=== PATIENT | female | born 1990 | race Caucasian/White ===

== ENCOUNTER 2017-03-31 17:48 | Emergency (ER) | payer MEDICAID ==
[~2017-03-31] VITALS: Ht 165.1 cm; Wt 61.2 kg
[~2017-03-31 17:48] MED LIST: AUGMENTIN 875-1 EAC1 ORAL; AZITHROMYCIN250 MG ORAL; EXCEDRIN EXTRA1 EAC1 PO; NKM
[2017-03-31 17:54] VITALS: BP 128/72
--- NOTE | 2017-03-31 18:16 | Emergency Room Report ---
History of Present Illness General Chief Complaint: Wound Recheck/Suture Removal Source: Patient Present Illness HPI 26YOF here for suture removal to laceration sustained 7 days prior in [place]. had 4 sutures placed. Took PPx Abx. Denies fever/chills, pain, pus drainage. Feels well otherwise. Allergies: Coded Allergies: No Known Allergies (Unverified , 09/24/15) Patient History Past Medical History: none Past Surgical History: none Pertinent Family History: none Social History: Denies: alcohol use, drug use, smoking Last Menstrual Period: 03/17/2017 Now: No Immunizations: UTD Reviewed Nursing Documentation: PMH: Agreed, PSxH: Agreed Nursing Documentation-PMH Past Medical History: No Stated History Review of Systems All Other Systems: negative except mentioned in HPI Physical Exam Vital Signs Date Time Temp Pulse Resp B/P Pulse Ox O2 Delivery O2 Flow Rate FiO2 03/31/17 17:54 98.2 67 16 128/72 99 Room Air Sp02 EP Interpretation: reviewed, normal General Appearance: normal inspection, well appearing, no apparent distress, alert Head: normocephalic, atraumatic Eyes: bilateral eye EOMI, bilateral eye PERRL ENT: normal ENT inspection, hearing grossly normal, normal voice Neck: normal inspection, full range of motion, supple, no bony tend Respiratory: normal inspection, lungs clear, normal breath sounds, no respiratory distress, no retraction, no wheezing Cardiovascular #1: regular rate, rhythm, no edema Gastrointestinal: normal inspection, normal bowel sounds, non tender, soft, no guarding, no hernia Genitourinary: no CVA tenderness Musculoskeletal: normal inspection, back normal, normal range of motion, Timur' s Sign negative Neurologic: normal inspection, alert, oriented x3, responsive, 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 Non-tender. No sign of infection. Healing well. 4 black sutures observed. Medical Decision Making Diagnostic Impression: Primary Impression: Encounter for dressing change or suture removal ER Course 4 sutures removed Wound holding together well, healing No sign of infection DC home Last Vital Signs Date Time Temp Pulse Resp B/P Pulse Ox O2 Delivery O2 Flow Rate FiO2 03/31/17 17:54 98.2 67 16 128/72 99 Room Air Status: improved Disposition: HOME, SELF-CARE IRENA HARVEY M.D. Mar 31, 2017 18:15
[2017-03-31 18:47] VITALS: BP 119/71
== END 2017-03-31 18:45 | disposition home or self-care (01) ==
LOC: EMR 18:15
DX: Z48.02 Encounter for removal of sutures (principal)
CPT/HCPCS: 99281

== ENCOUNTER 2017-06-14 18:44 | Emergency (ER) | payer MEDICAID ==
[~2017-06-14] VITALS: Ht 165.1 cm; Wt 63.5 kg
[2017-06-14 19:15] VITALS: BP 128/80
--- NOTE | 2017-06-14 19:17 | Emergency Room Report ---
History of Present Illness General Chief Complaint: Female Urogenital Problems Source: Patient Present Illness HPI 26YOF with 2 days dysuria, polyuria Has had symptoms since [employer] party a few days ago - kept swimsuit on for extended period of time after Thought it was yeast infection - took 3 days of fluconazole - no improvement Now also with fever/chills No flank, abd pain, nausea/vomiting Allergies: Coded Allergies: No Known Allergies (Unverified , 09/24/15) Patient History Past Medical History: none Past Surgical History: none Pertinent Family History: none Social History: Denies: alcohol use, drug use, smoking Now: Yes Reviewed Nursing Documentation: PMH: Agreed, PSxH: Agreed Nursing Documentation-PMH Past Medical History: No Stated History Review of Systems All Other Systems: negative except mentioned in HPI Physical Exam Vital Signs Date Time Temp Pulse Resp B/P Pulse Ox O2 Delivery O2 Flow Rate FiO2 06/14/17 18:53 98.1 63 20 128/80 100 Room Air Sp02 EP Interpretation: reviewed, normal General Appearance: normal inspection, well appearing, no apparent distress, alert, GCS 15, non-toxic Head: normocephalic, atraumatic Eyes: bilateral eye EOMI, bilateral eye PERRL ENT: normal ENT inspection, hearing grossly normal, normal voice Neck: normal inspection, full range of motion, supple, no bony tend Respiratory: normal inspection, lungs clear, normal breath sounds, no respiratory distress, no retraction, no wheezing Cardiovascular #1: regular rate, rhythm, no edema Gastrointestinal: normal inspection, normal bowel sounds, non tender, soft, no guarding, no hernia Genitourinary: no CVA tenderness Musculoskeletal: normal inspection, back normal, normal range of motion, Timur' s Sign negative Neurologic: normal inspection, alert, oriented x3, responsive, 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 06/14/17 IRENA HARVEY M.D. Jun 14, 2017 19:17
[2017-06-14] MEDS ORDERED: NITROFURANTOIN100 M2 ORAL (19:27)
[2017-06-14 19:40] VITALS: BP 122/72
[2017-06-14 19:44] LABS: APPEARANCE,URINE SLIGHTLY CLOUDY; KETONES,URINE NEGATIVE (NEGATIVE); LEUKOCYTE ESTERASE ,URINE 3+ (NEGATIVE); NITRITE,URINE NEGATIVE (NEGATIVE); PH,URINE 7 (4.5-8.0); PROTEIN,URINE NEGATIVE (NEGATIVE); UROBILINOGEN,URINE NORMAL MG/DL (0.0-1.0)
[2017-06-14 19:50] LABS: BACTERIA,URINE MODERATE /HPF; SQUAMOUS EPITHELIAL CELL,UR MANY /LPF (NONE/OCC); WBC,URINE TNTC /HPF (0 - 2)
== END 2017-06-14 19:50 | disposition home or self-care (01) ==
LOC: EMR 19:50
DX: R30.0 Dysuria (principal)
CPT/HCPCS: 81003; 81025; 87086; 99284

== ENCOUNTER 2017-06-19 08:37 | Emergency (ER) | payer MEDICAID ==
[~2017-06-19] VITALS: Ht 165.1 cm; Wt 63.5 kg
[~2017-06-19 08:37] MED LIST changes: +NITROFURANTOIN100 M2 ORAL
[2017-06-19] MEDS ORDERED: KEFLEX500 MG ORAL (08:54)
[2017-06-19] MEDS ORDERED: IBUPROFEN600 MG ORAL (08:54)
[2017-06-19 09:03] VITALS: BP 114/65
--- NOTE | 2017-06-19 09:21 | Emergency Room Report ---
History of Present Illness General Chief Complaint: Skin Rash/Abscess Source: Patient Present Illness HPI Patient presented for toe pain and swelling. Patient gradual onset of symptoms. Patient reported having some slight amount of discharge from the left great toe. Patient denied any fever. She reports taking antibiotics for urinary tract infection. Patient had previously been taking Macrobid. She denies any fever. Allergies: Coded Allergies: No Known Allergies (Unverified , 09/24/15) Patient History Past Medical History: see triage record Last Menstrual Period: 05/07/17 Now: No Reviewed Nursing Documentation: PMH: Agreed, PSxH: Agreed Nursing Documentation-PMH Past Medical History: No Stated History Review of Systems All Other Systems: negative except mentioned in HPI Physical Exam Vital Signs Date Time Temp Pulse Resp B/P Pulse Ox O2 Delivery O2 Flow Rate FiO2 06/19/17 08:40 98.2 78 14 117/81 98 Room Air General Appearance: well appearing, no apparent distress, alert, GCS 15 Head: normocephalic, atraumatic ENT: hearing grossly normal, normal voice Neck: full range of motion, supple Respiratory: no respiratory distress, speaking full sentences Cardiovascular #1: normal peripheral pulses, regular rate, rhythm, no edema Gastrointestinal: normal inspection, non tender Musculoskeletal: normal inspection, no calf tenderness Neurologic: normal inspection, alert, oriented x3, responsive, normal gait Psychiatric: mood/affect normal Skin: other - swelling to left great toe Medical Decision Making Diagnostic Impression: Primary Impression: Ingrowing toenail of left foot ER Course Patient presented for toe swelling. Differential diagnosis included was not limited to ingrown toenail, cellulitis, osteomyelitis, foreign body among others. Patient's benign exam and does not appear to require any further imaging or laboratory testing at this time. The patient noted have some evidence of ingrown toenail which appears to be minimally infected. Patient put on Keflex.Patient does not appear does not appear to require removal at this time. The patient is advised to follow up with primary care doctor in 1- 2 days. Patient is advised to return if any worsening condition or if any changes in status that are concerning. Last Vital Signs Date Time Temp Pulse Resp B/P Pulse Ox O2 Delivery O2 Flow Rate FiO2 06/19/17 08:40 98.2 78 14 117/81 98 Room Air Status: unchanged Disposition: HOME, SELF-CARE Condition: Stable Scripts Ibuprofen* (MOTRIN*) 600 Mg Tablet 600 MG ORAL Q8H Y for For Pain, #30 TAB 0 Refills Prov: Shawn Stephen 06/19/17 Cephalexin* (KEFLEX*) 500 Mg Capsule 500 MG ORAL Q6H, #28 CAP 0 Refills Prov: Shawn Stephen 06/19/17 Referrals: [facility],REFERRING (PCP) Patient Instructions: Shawn Stubbs Jun 19, 2017 09:21
== END 2017-06-19 09:03 | disposition home or self-care (01) ==
LOC: EMR 09:02
DX: L60.0 Ingrowing nail (principal)
CPT/HCPCS: 99284

== ENCOUNTER 2017-11-08 16:44 | Emergency (ER) | payer MEDICAID ==
[~2017-11-08] VITALS: Ht 165.1 cm; Wt 72.6 kg
[~2017-11-08 16:44] MED LIST changes: +IBUPROFEN600 MG ORAL; +KEFLEX500 MG ORAL
[2017-11-08] MEDS ORDERED: ORTHO TRI-CYCL1 EAC1 PO (17:09)
[2017-11-08 17:49] LABS: APPEARANCE,URINE CLEAR; BILIRUBIN, URINE NEGATIVE (NEGATIVE); COLOR,URINE PALE YELLOW; GLUCOSE, URINE (UA) NEGATIVE (NEGATIVE); KETONES,URINE NEGATIVE (NEGATIVE); LEUKOCYTE ESTERASE ,URINE 1+ (NEGATIVE); NITRITE,URINE NEGATIVE (NEGATIVE); PH,URINE 7 (4.5-8.0); PROTEIN,URINE NEGATIVE (NEGATIVE); UROBILINOGEN,URINE NORMAL MG/DL (0.0-1.0)
[2017-11-08] MEDS ORDERED: HYDROcodone/Acetamin 7.5/325 tab ORAL ONE (18:00)
[2017-11-08 19:30] VITALS: BP 126/77
--- NOTE | 2017-11-08 20:05 | Emergency Room Report ---
History of Present Illness General Chief Complaint: Abdominal Pain Source: Patient Present Illness HPI 26-year-old female presents to the emergency department complaining of 8/10 in severity left-sided adnexal pain and tenderness since yesterday. Patient also reports subjective fever she denies chills she denies measuring her temperature at home. Patient has been taking Tylenol which provides minimal relief. Patient states she just started control 2 weeks ago. She denies vaginal discharge, dyspareunia, dysuria, hematuria, vaginal bleeding , swollen tender lymph nodes, she is STD or . Patient reports history of ovarian cyst in the past, however she reports pain today is much stronger in severity than what she is used to. She denies nausea, vomiting, constipation or diarrhea. Allergies: Coded Allergies: No Known Allergies (Unverified , 09/24/15) Patient History Past Medical History: see triage record Past Surgical History: none Pertinent Family History: none Last Menstrual Period: control measures, 2 weeks ago Reviewed Nursing Documentation: PMH: Agreed, PSxH: Agreed Nursing Documentation-PMH Past Medical History: No History, Except For Review of Systems All Other Systems: negative except mentioned in HPI Physical Exam Vital Signs Date Time Temp Pulse Resp B/P (MAP) Pulse Ox O2 Delivery O2 Flow Rate FiO2 11/08/17 17:04 98.8 87 16 126/77 99 Room Air Sp02 EP Interpretation: reviewed, normal General Appearance: no apparent distress, alert, GCS 15, non-toxic Head: normocephalic, atraumatic Eyes: bilateral eye normal inspection, bilateral eye PERRL ENT: hearing grossly normal, normal voice Neck: full range of motion Respiratory: lungs clear, normal breath sounds, speaking full sentences Cardiovascular #1: regular rate, rhythm Gastrointestinal: normal bowel sounds, non tender, soft Rectal: deferred Genitourinary: normal inspection, other - moderate left adnexal tenderness. Musculoskeletal: back normal, gait/station normal, normal range of motion, non- tender Neurologic: alert, oriented x3, responsive, motor strength/tone normal, sensory intact, speech normal, grossly normal Psychiatric: judgement/insight normal Skin: normal color, no rash, warm/dry, well hydrated Lymphatic: no adenopathy Medical Decision Making PA Attestation Dr. dietrich is my supervising Physician whom patient management has been discussed with. Diagnostic Impression: Primary Impression: Adnexal pain Additional Impressions: Ovarian cyst Qualified Codes: N83.201 - Unspecified ovarian cyst, right side; N83.202 - Unspecified ovarian cyst, left side PCOS (polycystic ovarian syndrome) ER Course 26-year-old female presents to the emergency department complaining of 8/10 in severity left-sided adnexal pain and tenderness since yesterday. Patient also reports subjective fever she denies chills she denies measuring her temperature at home. Patient has been taking Tylenol which provides minimal relief. Patient states she just started control 2 weeks ago. She denies vaginal discharge, dyspareunia, dysuria, hematuria, vaginal bleeding , swollen tender lymph nodes, she is STD or . Patient reports history of ovarian cyst in the past, however she reports pain today is much stronger in severity than what she is used to. She denies nausea, vomiting, constipation or diarrhea. Ddx considered but are not limited to Diverticulitis, acute appy, ovarian torsion, ectopic , PID tubo-ovarian abscess, ovarian cyst. Vital signs: are WNL, pt. is afebrile, Patient is nontoxic and her parents she is in no acute distress. H&PE are most consistent with possible ovarian cyst, however due to presentation will r/o torsion, ectopic, and stone. ORDERS: -UA: Most indicative of contamination: presence of equal amounts of bacteria and squamous cells, no elevation in inflammatory markers, nitrite negative. -URINE HCG: Negative -Pelvic US Complete: Pulmonary ultrasound or further shows multiple peripheral cysts no free fluid good flow to the ovaries bilaterally no abscesses. ED INTERVENTIONS: -Sparks PO Discussed with this patient the results of her imaging studies and that she possibly has polycystic ovarian syndrome and what she'll have multiple ovarian cysts she specifically managed with oral control or spironolactone I discussed that she needs to followup with [facility] for medication management and to confirm diagnosis. DISCHARGE: At this time pt. is stable for d/c to home. Will provide printed patient care instructions, and any necessary prescriptions. Care plan and follow up instructions have been discussed with the patient prior to discharge. Labs Test 11/08/17 17:20 Urine Color Pale yellow Urine Appearance Clear Urine pH 7 (4.5-8.0) Urine Specific [place] 1.005 (1.005-1.035) Urine Protein Negative (NEGATIVE) Urine Glucose (UA) Negative (NEGATIVE) Urine Ketones Negative (NEGATIVE) Urine Occult Blood Negative (NEGATIVE) Urine Nitrite Negative (NEGATIVE) Urine Bilirubin Negative (NEGATIVE) Urine Urobilinogen Normal MG/DL (0.0-1.0) Urine Leukocyte Esterase 1+ (NEGATIVE) Urine RBC 0-2 /HPF (0 - 2) Urine WBC 0-2 /HPF (0 - 2) Urine Squamous Epithelial Cells Few /LPF (NONE/OCC) Urine Bacteria Few /HPF (NONE) Urine HCG, Qualitative Negative Last Vital Signs Date Time Temp Pulse Resp B/P (MAP) Pulse Ox O2 Delivery O2 Flow Rate FiO2 11/08/17 17:04 98.8 87 16 126/77 99 Room Air Disposition: HOME, SELF-CARE Condition: Stable Scripts Ibuprofen* (MOTRIN*) 600 Mg Tablet 600 MG ORAL THREE TIMES A DAY, #30 TAB 0 Refills Prov: Edith Lora 11/08/17 Hydrocodone Bit/Acetaminophen 5-325* (NORCO 5-325 TABLET*) 1 Each Tablet 1 TAB ORAL Q6HR Y for For Pain, #9 TAB Prov: Edith Lora 11/08/17 Referrals: [facility],REFERRING (PCP) Patient Instructions: Ovarian Cyst, Polycystic Ovarian Syndrome Additional Instructions: Take medications as directed. Follow up with a OBGYN within 3 days, even if your symptoms have resolved. pelvic US preliminary read shows: multiple peripheral cysts on the ovaries bilaterally. Return sooner to ED if new symptoms occur, or current symptoms become worse. Edith Lora Nov 08, 2017 20:05
[2017-11-08] MEDS ORDERED: PRENATAL + DHA1 EAC1 PO (20:09)
[2017-11-08] MEDS ORDERED: TYLENOL EXTRA500 MG ORAL (20:09)
[2017-11-08] MEDS ORDERED: ROBITUSSIN COU237 M1 PO (20:09)
[2017-11-08] MEDS ORDERED: NORCO 5-325 TA1 EAC1 ORAL (20:43)
[2017-11-08] MEDS ORDERED: IBUPROFEN600 MG ORAL (20:43)
[2017-11-08] MEDS ORDERED: Norco 5mg/325mg tab ORAL ONE (20:45)
[2017-11-08 21:00] VITALS: BP 126/80
[2017-11-08 21:03] VITALS: BP 126/77
--- NOTE | 2017-11-09 10:13 | Diagnostic Imaging Report ---
Indication: Pain. Last menstrual period 10/22/2017 Technique: Transabdominal and endovaginal pelvic ultrasound was performed. Comparison: None Findings: Uterus measures 8.4 x 4.8 x 5.4 cm. Endometrium measures 10 mm in thickness. No focal uterine abnormality is identified. A 2.3 mm cystic structures noted within the cervix, likely nabothian cyst. The right ovary measures 3.8 x 2.7 x 1.8 cm/9.4 mL. The left ovary measures 4.1 x 1.9 x 2.8 cm/11.6 mL rate multiple peripheral follicles are noted in the bilateral ovaries, right greater than left. There is a 2.8 x 1.8 cm more hyperechoic left ovarian cyst/lesion which may represent a more complex is. Follow-up exam recommended to assess stability. There is no evidence to suggest ovarian torsion at this time, color flow to the bilateral ovaries identified. No free pelvic fluid. Impression: Evidence of suggest ovarian torsion at this time. Multiple follicles in the periphery of each ovary may suggest polycystic ovarian syndrome in the appropriate clinical setting. Somewhat more hyperechoic cyst/lesion in the left ovary measuring up to 2.8 cm may represent a complex cyst versus neoplasm (benign or malignant). Short-term interval follow-up exam recommended to assess stability/resolution. This corresponds with the [facility] preliminary report with some discrepancy regarding left ovarian findings. Findings and imaging follow-up recommendations discussed with Dr. Stephen on 11/09/2017, 10:00 AM.
== END 2017-11-08 21:03 | disposition home or self-care (01) ==
LOC: EMR 17:20
DX: R10.2 Pelvic and perineal pain (principal); N83.202 Unspecified ovarian cyst, left side
CPT/HCPCS: 76856; 81003; 81025; 99284

== ENCOUNTER 2018-01-22 18:32 | Emergency (ER) | payer MEDICAID ==
[~2018-01-22] VITALS: Ht 165.1 cm; Wt 72.6 kg
[~2018-01-22 18:32] MED LIST changes: +NORCO 5-325 TA1 EAC1 ORAL; +ORTHO TRI-CYCL1 EAC1 PO; +PRENATAL + DHA1 EAC1 PO; +ROBITUSSIN COU237 M1 PO; +TYLENOL EXTRA500 MG ORAL
--- NOTE | 2018-01-22 19:00 | Emergency Room Report ---
History of Present Illness General Chief Complaint: Female Urogenital Problems Source: Patient Present Illness HPI 27-year-old female patient presents to ER complaining of frequency x4 days. Denies dysuria, hematuria, discharge, foul smelling odor. Denies vaginal sores, rash, abdominal pain, flank pain. 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 Denies hx of kidney stones, IVDA, cancer. Reports sexually monogamous, uses condoms during sex. Denies hx of STI. Reports LMP 2 weeks ago, normal for her. Reports on control. Denies . Reports hx of UTI, states this feels similar. Denies fever, chest pain, SOB. Allergies: Coded Allergies: No Known Allergies (Unverified , 09/24/15) Patient History Past Medical History: see triage record Last Menstrual Period: 2 weeks Now: No Reviewed Nursing Documentation: PMH: Agreed; PSxH: Agreed Nursing Documentation-PMH Past Medical History: No History, Except For Review of Systems All Other Systems: negative except mentioned in HPI Physical Exam Vital Signs Date Time Temp Pulse Resp B/P (MAP) Pulse Ox O2 Delivery O2 Flow Rate FiO2 01/22/18 18:50 98.0 57 18 121/70 98 Room Air 98.1 Sp02 EP Interpretation: reviewed, normal General Appearance: well appearing, no apparent distress, alert, GCS 15, non- toxic Head: normocephalic, atraumatic Eyes: bilateral eye normal inspection, bilateral eye PERRL ENT: hearing grossly normal, normal pharynx, no angioedema, normal voice, uvula midline, moist mucus membranes Neck: full range of motion Respiratory: lungs clear, normal breath sounds, no rhonchi, no respiratory distress, no accessory muscle use, no wheezing, speaking full sentences Cardiovascular #1: regular rate, rhythm, no edema Gastrointestinal: non tender, soft, no mass, non-distended, no guarding, no rebound Genitourinary: no CVA tenderness Musculoskeletal: back normal, digits/nails normal, gait/station normal, normal range of motion, non-tender, no calf tenderness Neurologic: alert, oriented x3, responsive, motor strength/tone normal, sensory intact Psychiatric: mood/affect normal Skin: no rash Lymphatic: no adenopathy Medical Decision Making PA Attestation Dr. Stephen is my supervising Physician whom patient management has been discussed with. Diagnostic Impression: Primary Impression: Urinary tract infection ER Course Pt presents to ED c/o frequency. DDX considered but are not limited to cystitis, pyelonephritis, vaginitis, . VITAL SIGNS are WNL, patient is afebrile. ORDERS: UA with reflux Urine ER COURSE UA results positive for leukocyte esterase, WBC, equivocal for UTI, will treat with abx. Urine negative, results discussed with patient. Discussed results with patient. Instructed patient to followup with primary care provider and discuss referral to urology as needed. Followup with [facility] clinic if concern for UTI. DISCHARGE: Patient is resting comfortably in chair, nontoxic appearing, in no acute distress. Patient states they feel better and is ready to go home. -Rx provided for Keflex -Rx provided for Tylenol Will provide with patient care instructions and any necessary prescriptions. Patient understands and agrees to treatment plan. Patient encouraged to drink plenty of fluids. Patient to take medication as instructed. Care plan and follow-up instructions provided. Patient questions asked and answered. Reports understanding and agreement to treatment plan. Patient instructed to follow-up with primary care provider in 3 - 5 days. ER precautions given. Patient instructed to return to ER immediately for any new or worsening of symptoms. Including but not limited to fever, worsening pain , intractable vomiting. Labs Test 01/22/18 18:50 Urine Color Pale yellow Urine Appearance Clear Urine pH 8 (4.5-8.0) Urine Specific [place] 1.015 (1.005-1.035) Urine Protein Negative (NEGATIVE) Urine Glucose (UA) Negative (NEGATIVE) Urine Ketones Negative (NEGATIVE) Urine Occult Blood Negative (NEGATIVE) Urine Nitrite Negative (NEGATIVE) Urine Bilirubin Negative (NEGATIVE) Urine Urobilinogen Normal MG/DL (0.0-1.0) Urine Leukocyte Esterase 2+ (NEGATIVE) Urine RBC 0-2 /HPF (0 - 2) Urine WBC 2-4 /HPF (0 - 2) Urine Squamous Epithelial Cells Moderate /LPF (NONE/OCC) Urine Bacteria Few /HPF (NONE) Urine HCG, Qualitative Negative (NEGATIVE) Last Vital Signs Date Time Temp Pulse Resp B/P (MAP) Pulse Ox O2 Delivery O2 Flow Rate FiO2 01/22/18 18:50 98.0 57 18 121/70 98 Room Air 98.1 Disposition: HOME, SELF-CARE Condition: Stable Scripts Acetaminophen* (TYLENOL EXTRA STRENGTH*) 500 Mg Tablet 500 MG ORAL Q8H PRN for Prn Headache/Temp > 101, #30 TAB 0 Refills Prov: Chris Ghotra 01/22/18 Cephalexin* (KEFLEX*) 500 Mg Capsule 500 MG ORAL EVERY 12 HOURS for 7 Days, #14 CAP 0 Refills Prov: Chris Ghotra 01/22/18 Patient Instructions: Back Pain, Adult, [id number], Urinary Tract Infection Additional Instructions: Followup with primary care provider in 3 -5 days. Discuss referral to urologist. Take medications as directed. Patient questions asked and answered. ER precautions given, patient instructed to return to ER immediately for any new or worsening of symptoms. Chris Ghotra Jan 22, 2018 18:59
[2018-01-22 19:19] LABS: APPEARANCE,URINE CLEAR; BILIRUBIN, URINE NEGATIVE (NEGATIVE); COLOR,URINE PALE YELLOW; GLUCOSE, URINE (UA) NEGATIVE (NEGATIVE); KETONES,URINE NEGATIVE (NEGATIVE); LEUKOCYTE ESTERASE ,URINE 2+ (NEGATIVE); NITRITE,URINE NEGATIVE (NEGATIVE); PH,URINE 8 (4.5-8.0); PROTEIN,URINE NEGATIVE (NEGATIVE); UROBILINOGEN,URINE NORMAL MG/DL (0.0-1.0)
[2018-01-22] MEDS ORDERED: Acetaminophen 500mg (ES) tab ORAL ONE (19:45)
[2018-01-22] MEDS ORDERED: CEPHALEXIN500 MG ORAL (19:46)
[2018-01-22] MEDS ORDERED: TYLENOL EXTRA500 MG ORAL (19:46)
[2018-01-22 19:52] VITALS: BP 118/74
[2018-01-22 19:53] VITALS: BP 118/74
== END 2018-01-22 19:54 | disposition home or self-care (01) ==
LOC: EMR 19:50
DX: N39.0 Urinary tract infection, site not specified (principal)
CPT/HCPCS: 81003; 81025; 99284

== ENCOUNTER 2018-04-25 18:51 | Emergency (ER) | payer MEDICAID ==
[~2018-04-25] VITALS: Ht 165.1 cm; Wt 72.6 kg
[~2018-04-25 18:51] MED LIST changes: +CEPHALEXIN500 MG ORAL
[2018-04-25] MEDS ORDERED: MYORISAN30 MG PO (19:12)
--- NOTE | 2018-04-25 19:52 | Emergency Room Report ---
History of Present Illness General Chief Complaint: Sore Throat Source: Patient Present Illness HPI 27 YO Female presents to the ED c/o : 05/07 in severity sore throat, tonsillar swelling, and nasal congestion x 2 days With intermittent fevers and chills. Denies cough, ear pain, neck pain or stiffness. has been taking Motrin OTC for pain. Denies recent travel or ill contacts. Denies CP, Palpitations, LOC, AMS, dizziness, Changes in Vision, Sensation, paresthesias, or a sudden severe headache. Allergies: Coded Allergies: No Known Allergies (Unverified , 09/24/15) Patient History Past Medical History: see triage record Past Surgical History: none Pertinent Family History: none Last Menstrual Period: 04/11/18 Now: No Reviewed Nursing Documentation: PMH: Agreed; PSxH: Agreed Review of Systems All Other Systems: negative except mentioned in HPI Physical Exam Vital Signs Date Time Temp Pulse Resp B/P (MAP) Pulse Ox O2 Delivery O2 Flow Rate FiO2 04/25/18 19:09 99.5 96 17 131/84 97 Room Air 99.5 Sp02 EP Interpretation: reviewed, normal General Appearance: no apparent distress, alert, GCS 15, non-toxic Head: normocephalic, atraumatic Eyes: bilateral eye normal inspection, bilateral eye PERRL ENT: hearing grossly normal, normal voice, TMs + canals normal, uvula midline, moist mucus membranes, tonsillar swelling, pharyngeal erythema, tonsillar exudate Neck: full range of motion, no meningismus, no bony tend Respiratory: lungs clear, normal breath sounds, no respiratory distress, no wheezing, speaking full sentences Cardiovascular #1: regular rate, rhythm Musculoskeletal: back normal, gait/station normal, normal range of motion, non- tender Neurologic: alert, oriented x3, responsive, motor strength/tone normal, sensory intact, normal gait, speech normal, grossly normal Psychiatric: judgement/insight normal Skin: normal color, no rash, warm/dry, well hydrated Lymphatic: no adenopathy Medical Decision Making PA Attestation Dr. Murrieta is my supervising Physician whom patient management has been discussed with. Diagnostic Impression: Primary Impression: Pharyngitis Qualified Codes: J02.0 - Streptococcal pharyngitis ER Course 27 YO Female presents to the ED c/o : 05/07 in severity sore throat, tonsillar swelling, and nasal congestion x 2 days With intermittent fevers and chills. Denies cough, ear pain, neck pain or stiffness. has been taking Motrin OTC for pain. Denies recent travel or ill contacts. Denies CP, Palpitations, LOC, AMS, dizziness, Changes in Vision, Sensation, paresthesias, or a sudden severe headache. Ddx considered but are not limited to: pharyngitis, strep, [employer], ludwigs angina, URI Vital signs: are WNL, pt. is afebrile H&PE are most consistent with: pharyngitis presumed strep. ORDERS: None required at this time as the diagnosis is clinical ED INTERVENTIONS: none required at this time. DISCHARGE: At this time pt. is stable for d/c to home. Will provide printed patient care instructions, and any necessary prescriptions. Care plan and follow up instructions have been discussed with the patient prior to discharge. Last Vital Signs Date Time Temp Pulse Resp B/P (MAP) Pulse Ox O2 Delivery O2 Flow Rate FiO2 04/25/18 19:09 99.5 96 17 131/84 97 Room Air 99.5 Disposition: HOME, SELF-CARE Condition: Stable Scripts Cetirizine Hcl/Pseudoephedrine (ZYRTEC-D TABLET) 1 Each Tab.er.12h 1 EACH ORAL Q12HR for 7 Days, #14 TAB Prov: Edith Lora 04/25/18 Azithromycin* (ZITHROMAX*) 250 Mg Tablet 250 MG ORAL DAILY for 5 Days, #6 TAB Prov: Edith Lora 04/25/18 Patient Instructions: Strep Throat Additional Instructions: Take medications as directed. Follow up with a Primary Care Provider in 3-5 days, even if your symptoms have resolved. --Please review list of primary care clinics, if you do not already have a primary care provider Return sooner to ED if new symptoms occur, or current symptoms become worse. - Please note that this Emergency Department Report was dictated using [employer] operator technology software, occasionally this can lead to erroneous entry secondary to interpretation by the dictation equipment. Edith Lora Apr 25, 2018 19:52
[2018-04-25] MEDS ORDERED: ZYRTEC-D TABLE1 EACH ORAL (19:53)
[2018-04-25] MEDS ORDERED: ZITHROMAX250 MG ORAL (19:53)
[2018-04-25 19:54] VITALS: BP 131/84
== END 2018-04-25 19:54 | disposition home or self-care (01) ==
LOC: EMR 19:30
DX: J02.9 Acute pharyngitis, unspecified (principal)
CPT/HCPCS: 99284